=== PATIENT | male | born 1970 | race Caucasian/White ===

== ENCOUNTER 2021-04-04 21:24 | Inpatient (IN) | payer OTHER ==
[~2021-04-04] VITALS: Ht 190.5 cm; Wt 115.0 kg
[~2021-04-04 21:24] MED LIST: NORCO 5-325 TA1 EACH PO
[2021-04-04 22:02] LABS: BASOPHIL 0.5 % (0-2); EOSINOPHIL 0 % (0-5); HCT 51.7 % (42.0-52.0); HGB 17.9 g/dl (13.2-18.0); MCH 30.3 pg (25.0-31.0); MCHC 34.6 g/dL (32.0-36.0); MCV 87.5 fL (78.0-100.0); MPV 10.3 fL (6.0-9.5); NRBC 0; PLT 227 K/uL (150-400); RBC 5.91 M/uL (4.70-6.00); RDW 12.3 % (11.5-14.0); WBC 5.5 K/uL (4.0-10.5)
[2021-04-04 22:03] LABS: NEUTROPHIL 69.1 % (41-80)
[2021-04-04 22:35] LABS: ALBUMIN 2.9 g/dL (3.4-5.0); BILIRUBIN - TOTAL 0.6 mg/dL (0.2-1.0); BUN/CREAT RATIO (CALC) 14.2 RATIO; CREATININE 2.6 mg/dL (0.67-1.17); POTASSIUM 3.6 mmol/L (3.5-5.1); TOTAL PROTEIN 6.9 g/dL (6.4-8.2)
[2021-04-05 00:18] LABS: CREATININE 2.42 mg/dL (0.67-1.17)
--- NOTE | 2021-04-05 01:43 | NUR ---
Received phone from frieda Vega for positive covid.
[2021-04-05] MEDS ORDERED: AMARYL2 MG PO (04:04)
[2021-04-05] MEDS ORDERED: METFORMIN HCL500 M3 PO (04:05)
[2021-04-05] MEDS ORDERED: LISINOPRIL10 MG PO (04:06)
[2021-04-05] MEDS ORDERED: LIPITOR 10MG TA10 MG PO (04:07)
[2021-04-05] MEDS ORDERED: ASPIRIN EC81 MG PO (04:08)
[2021-04-05 09:37] LABS: BASOPHIL 0.2 % (0-2); EOSINOPHIL 0 % (0-5); HCT 47.2 % (42.0-52.0); HGB 15.7 g/dl (13.2-18.0); LYMPHOCYTE 13.8 % (15-48); MCH 30.3 pg (25.0-31.0); MCHC 33.3 g/dL (32.0-36.0); MCV 90.9 fL (78.0-100.0); MONOCYTE 17.2 % (0-12); MPV 10.7 fL (6.0-9.5); NEUTROPHIL 68.3 % (41-80); NRBC 0; PLT 200 K/uL (150-400); RBC 5.19 M/uL (4.70-6.00); RDW 12.7 % (11.5-14.0); WBC 4.4 K/uL (4.0-10.5)
[2021-04-05 09:41] LABS: INR 1.05 (0.9-1.2); PROTHROMBIN TIME 13.1 SECONDS (11.8-13.4)
[2021-04-05 09:59] LABS: ALBUMIN 2.5 g/dL (3.4-5.0); BILIRUBIN - TOTAL 0.5 mg/dL (0.2-1.0); BUN/CREAT RATIO (CALC) 14.3 RATIO; C-REACTIVE PROTEIN 6.2 mg/dL (<=0.90); CREATININE 2.24 mg/dL (0.67-1.17); GLOBULIN (CALCULATION) 3.3 g/dL; POTASSIUM 3.6 mmol/L (3.5-5.1); TOTAL PROTEIN 5.8 g/dL (6.4-8.2)
[2021-04-05 22:55] LABS: BILIRUBIN NEGATIVE (NEGATIVE); BLOOD 3+ Ery/uL (NEGATIVE); CLARITY CLEAR (CLEAR); COLOR YELLOW (YELLOW); GLUCOSE (U) NORMAL (NORMAL); LEUKOCYTES NEGATIVE Leu/uL (NEGATIVE); NITRITE NEGATIVE (NEGATIVE); PROTEIN 2+ mg/dL (NEGATIVE); UROBILINOGEN 0.2 mg/dL (0.2-1.0); pH 5.5 (5.0-9.0)
[2021-04-05 23:05] LABS: AMORPHOUS URATES CRYSTALS MODERATE; BACTERIA 1+; URIC ACID CRYSTALS MODERATE; URINARY RBC TNTC; YEAST PRESENT
[2021-04-06 06:00] LABS: BASOPHIL 0.5 % (0-2); EOSINOPHIL 0 % (0-5); HCT 40.4 % (42.0-52.0); HGB 13.8 g/dl (13.2-18.0); LYMPHOCYTE 14.3 % (15-48); MCH 30.4 pg (25.0-31.0); MCHC 34.2 g/dL (32.0-36.0); MONOCYTE 16.1 % (0-12); MPV 10.3 fL (6.0-9.5); NEUTROPHIL 68.1 % (41-80); NRBC 0; PLT 199 K/uL (150-400); RBC 4.54 M/uL (4.70-6.00); RDW 12.5 % (11.5-14.0)
[2021-04-06 06:46] LABS: BUN/CREAT RATIO (CALC) 12.1 RATIO; CREATININE 1.74 mg/dL (0.67-1.17); POTASSIUM 3.3 mmol/L (3.5-5.1)
[2021-04-07 07:24] LABS: BASOPHIL 0.4 % (0-2); EOSINOPHIL 0 % (0-5); HCT 41.6 % (42.0-52.0); HGB 13.8 g/dl (13.2-18.0); LYMPHOCYTE 15.5 % (15-48); MCH 29.9 pg (25.0-31.0); MCHC 33.2 g/dL (32.0-36.0); MONOCYTE 9.7 % (0-12); MPV 9.8 fL (6.0-9.5); NRBC 0; PLT 233 K/uL (150-400); RBC 4.62 M/uL (4.70-6.00); RDW 12.7 % (11.5-14.0); WBC 5.6 K/uL (4.0-10.5)
[2021-04-07 07:58] LABS: BUN/CREAT RATIO (CALC) 8.6 RATIO; CREATININE 1.62 mg/dL (0.67-1.17); POTASSIUM 3.7 mmol/L (3.5-5.1)
[2021-04-07 10:49] LABS: MAGNESIUM 1.5 mg/dL (1.8-2.4); PHOSPHORUS 2.9 mg/dL (2.6-4.7)
[2021-04-08 07:11] LABS: BASOPHIL 0.3 % (0-2); EOSINOPHIL 0 % (0-5); HCT 42.7 % (42.0-52.0); LYMPHOCYTE 12.5 % (15-48); MCH 29.9 pg (25.0-31.0); MCHC 32.8 g/dL (32.0-36.0); MONOCYTE 8.7 % (0-12); MPV 9.8 fL (6.0-9.5); NEUTROPHIL 75.3 % (41-80); NRBC 0; PLT 262 K/uL (150-400); RBC 4.69 M/uL (4.70-6.00); WBC 6.9 K/uL (4.0-10.5)
[2021-04-08 07:37] LABS: BUN/CREAT RATIO (CALC) 7.6 RATIO; CREATININE 1.72 mg/dL (0.67-1.17); MAGNESIUM 1.4 mg/dL (1.8-2.4); POTASSIUM 4.5 mmol/L (3.5-5.1)
[2021-04-08] MEDS ORDERED: DEXAMETHASONE 2M2 MG PO (15:32)
== END 2021-04-08 16:25 | disposition home or self-care (01) | DRG 177 ==
LOC: FER 21:24 → FMS 04-05 00:40
PROVIDERS: Emergency Medicine; Internal Medicine; Nurse Practitioner; ADMIT Internal Medicine
PROC: XW033G6 Introduction of REGN-COV2 Monoclonal Antibody into Peripheral Vein, Percutaneous Approach, New Technology Group 6 (ICD-10-PCS; 2021-04-04)
PROC: 8E0ZXY6 Isolation (ICD-10-PCS; principal; 2021-04-05)
DX: U07.1 COVID-19 (principal); J12.82 Pneumonia due to coronavirus disease 2019; N17.9 Acute kidney failure, unspecified; A08.39 Other viral enteritis; B37.41 Candidal cystitis and urethritis; N18.9 Chronic kidney disease, unspecified; E83.42 Hypomagnesemia; I12.9 Hypertensive chronic kidney disease with stage 1 through stage 4 chronic kidney disease, or unspecified chronic kidney disease; E11.22 Type 2 diabetes mellitus with diabetic chronic kidney disease; E86.0 Dehydration; T39.395A Adverse effect of other nonsteroidal anti-inflammatory drugs [NSAID], initial encounter; E78.5 Hyperlipidemia, unspecified; Z98.890 Other specified postprocedural states; Z79.82 Long term (current) use of aspirin; Z79.84 Long term (current) use of oral hypoglycemic drugs; Z79.899 Other long term (current) drug therapy; Z89.411 Acquired absence of right great toe; Z82.49 Family history of ischemic heart disease and other diseases of the circulatory system
CPT/HCPCS: 36415; 71045; 80048; 80053; 81001; 82728; 82962; 83036; 83615; 83735; 84100; 84484; 85025; 85610; 86140; 87045; 87046; 87088; 87205; 87449; 94010; 94640; 94760; 94762; J1650; J2405; J3475; J7030; J7120; U0002

== ENCOUNTER 2021-04-15 11:05 | Inpatient (IN) | payer OTHER ==
[~2021-04-15] VITALS: Ht 188 cm; Wt 111.0 kg
[~2021-04-15 11:05] MED LIST changes: +AMARYL2 MG PO; +ASPIRIN EC81 MG PO; +DEXAMETHASONE 2M2 MG PO; +LIPITOR 10MG TA10 MG PO; +LISINOPRIL10 MG PO; +METFORMIN HCL500 M3 PO
[2021-04-15 13:05] LABS: BASOPHIL 0.2 % (0-2); EOSINOPHIL 0.2 % (0-5); HCT 47.2 % (42.0-52.0); HGB 15.9 g/dl (13.2-18.0); LYMPHOCYTE 2.4 % (15-48); MCH 30.5 pg (25.0-31.0); MCHC 33.7 g/dL (32.0-36.0); MCV 90.6 fL (78.0-100.0); MPV 9.8 fL (6.0-9.5); NEUTROPHIL 89.8 % (41-80); NRBC 0; PLT 604 K/uL (150-400); RBC 5.21 M/uL (4.70-6.00); RDW 12.7 % (11.5-14.0); WBC 12.7 K/uL (4.0-10.5)
[2021-04-15 13:17] LABS: ALBUMIN 2.1 g/dL (3.4-5.0); CREATININE 1.41 mg/dL (0.67-1.17); GLOBULIN (CALCULATION) 4.3 g/dL; POTASSIUM 4.3 mmol/L (3.5-5.1); TOTAL PROTEIN 6.4 g/dL (6.4-8.2)
[2021-04-16 06:27] LABS: BASOPHIL 0.3 % (0-2); EOSINOPHIL 0 % (0-5); HCT 44.6 % (42.0-52.0); HGB 14.6 g/dl (13.2-18.0); LYMPHOCYTE 9.7 % (15-48); MCH 30.2 pg (25.0-31.0); MCHC 32.7 g/dL (32.0-36.0); MCV 92.1 fL (78.0-100.0); MONOCYTE 8.5 % (0-12); MPV 9.6 fL (6.0-9.5); NEUTROPHIL 76.6 % (41-80); NRBC 0; PLT 522 K/uL (150-400); RBC 4.84 M/uL (4.70-6.00); RDW 12.9 % (11.5-14.0); WBC 5.8 K/uL (4.0-10.5)
[2021-04-16 06:46] LABS: BILIRUBIN - TOTAL 0.5 mg/dL (0.2-1.0); BUN/CREAT RATIO (CALC) 17.1 RATIO; C-REACTIVE PROTEIN 10.3 mg/dL (<=0.90); CREATININE 1.4 mg/dL (0.67-1.17); GLOBULIN (CALCULATION) 3.5 g/dL; POTASSIUM 5.6 mmol/L (3.5-5.1); TOTAL PROTEIN 5.5 g/dL (6.4-8.2)
[2021-04-16 11:34] LABS: BUN/CREAT RATIO (CALC) 20.5 RATIO; CREATININE 1.22 mg/dL (0.67-1.17); POTASSIUM 4.6 mmol/L (3.5-5.1)
--- NOTE | 2021-04-16 14:09 | NUR ---
04/16/21 Will monitor for 02 needs.
[2021-04-17 06:10] LABS: HBSAG SCREEN Negative (Negative); HEP A AB, IGM Negative (Negative); HEP B CORE AB, IGM Negative (Negative); HEP C VIRUS AB <0.1 (0.0-0.9)
[2021-04-17 06:35] LABS: BASOPHIL 0.1 % (0-2); EOSINOPHIL 0.1 % (0-5); HCT 44.5 % (42.0-52.0); HGB 14.6 g/dl (13.2-18.0); LYMPHOCYTE 10.2 % (15-48); MCH 30.1 pg (25.0-31.0); MCHC 32.8 g/dL (32.0-36.0); MCV 91.8 fL (78.0-100.0); MONOCYTE 8.3 % (0-12); MPV 9.9 fL (6.0-9.5); NEUTROPHIL 79.6 % (41-80); NRBC 0; PLT 591 K/uL (150-400); RBC 4.85 M/uL (4.70-6.00); RDW 12.7 % (11.5-14.0); WBC 9.3 K/uL (4.0-10.5)
[2021-04-17 07:01] LABS: BILIRUBIN - TOTAL 0.5 mg/dL (0.2-1.0); BUN/CREAT RATIO (CALC) 20.5 RATIO; CREATININE 1.32 mg/dL (0.67-1.17); POTASSIUM 4.4 mmol/L (3.5-5.1)
--- NOTE | 2021-04-17 15:45 | NUR ---
O2 ORDERED FROM [facility] FOR WEEKEND DISCHARGE.
[2021-04-18 04:33] LABS: BASOPHIL 0.1 % (0-2); EOSINOPHIL 0.1 % (0-5); HCT 45.4 % (42.0-52.0); HGB 14.9 g/dl (13.2-18.0); LYMPHOCYTE 11.8 % (15-48); MCH 30.2 pg (25.0-31.0); MCHC 32.8 g/dL (32.0-36.0); MCV 91.9 fL (78.0-100.0); MONOCYTE 9.6 % (0-12); MPV 9.5 fL (6.0-9.5); NEUTROPHIL 76.8 % (41-80); NRBC 0; PLT 539 K/uL (150-400); RBC 4.94 M/uL (4.70-6.00); RDW 12.6 % (11.5-14.0)
[2021-04-18 05:00] LABS: BILIRUBIN - TOTAL 0.5 mg/dL (0.2-1.0); BUN/CREAT RATIO (CALC) 16.9 RATIO; CREATININE 1.42 mg/dL (0.67-1.17); GLOBULIN (CALCULATION) 3.8 g/dL; POTASSIUM 4.9 mmol/L (3.5-5.1); TOTAL PROTEIN 5.8 g/dL (6.4-8.2)
[2021-04-19 05:07] LABS: ALBUMIN 2.1 g/dL (3.4-5.0); BILIRUBIN - TOTAL 0.4 mg/dL (0.2-1.0); BUN/CREAT RATIO (CALC) 17.3 RATIO; CREATININE 1.33 mg/dL (0.67-1.17); GLOBULIN (CALCULATION) 3.6 g/dL; POTASSIUM 4.1 mmol/L (3.5-5.1); TOTAL PROTEIN 5.7 g/dL (6.4-8.2)
[2021-04-19] MEDS ORDERED: DEXAMETHASONE 2M2 MG PO (12:06)
== END 2021-04-19 13:40 | disposition home or self-care (01) | DRG 177 ==
LOC: FER 11:05 → FICU 15:19 → FMS 15:19 → FICU 17:11 → FMS 04-16 11:04
PROVIDERS: Nurse Practitioner Family; ADMIT Family Medicine
PROC: 8E0ZXY6 Isolation (ICD-10-PCS; principal; 2021-04-15)
PROC: XW033E5 Introduction of Remdesivir Anti-infective into Peripheral Vein, Percutaneous Approach, New Technology Group 5 (ICD-10-PCS; 2021-04-15)
PROC: XW0DXM6 Introduction of Baricitinib into Mouth and Pharynx, External Approach, New Technology Group 6 (ICD-10-PCS; 2021-04-15)
DX: U07.1 COVID-19 (principal); J12.82 Pneumonia due to coronavirus disease 2019; J96.01 Acute respiratory failure with hypoxia; N17.9 Acute kidney failure, unspecified; E11.65 Type 2 diabetes mellitus with hyperglycemia; E87.5 Hyperkalemia; E11.22 Type 2 diabetes mellitus with diabetic chronic kidney disease; I12.9 Hypertensive chronic kidney disease with stage 1 through stage 4 chronic kidney disease, or unspecified chronic kidney disease; N18.9 Chronic kidney disease, unspecified; R74.01 Elevation of levels of liver transaminase levels; Z98.890 Other specified postprocedural states; Z89.411 Acquired absence of right great toe; Z79.82 Long term (current) use of aspirin; Z79.84 Long term (current) use of oral hypoglycemic drugs; Z79.899 Other long term (current) drug therapy; Z91.041 Radiographic dye allergy status
CPT/HCPCS: 36415; 36600; 71045; 71275; 80048; 80053; 80074; 82803; 82962; 84145; 85025; 85379; 86140; 93005; 94010; 94640; 94664; C9399; J1100; J1200; J1650; J1815; J7030; J7050; J8540; Q9967